=== PATIENT | male | born 1980 | race African-American/Black ===

== ENCOUNTER → 2017-01-10 | Outpatient (CLI) | payer BC | LOC: EXRD 11:32 | DX: R04.2 Hemoptysis (principal) | CPT/HCPCS: 71020 ==

== ENCOUNTER 2020-10-29 17:45 | Emergency (ER) | payer BC ==
[~2020-10-29 17:45] MED LIST: K-DUR TAB 20 M20 MEQ PO
== END 2020-10-29 18:20 | disposition left against medical advice (07) ==
LOC: ER1 17:45
DX: R06.02 Shortness of breath (principal); R51.9 Headache, unspecified; Z53.21 Procedure and treatment not carried out due to patient leaving prior to being seen by health care provider

== ENCOUNTER → 2020-12-18 | Outpatient (CLI) | payer BC, OTHER | LOC: HEART 5 14:19 | DX: R07.9 Chest pain, unspecified (principal) | CPT/HCPCS: 93306 ==